=== PATIENT | male | born 1945 | race Caucasian/White ===

== ENCOUNTER 2022-09-23 15:41 | Emergency (ER) | payer MEDICARE ==
[2022-09-23 16:40] LABS: BASOPHILS % (AUTO) 0.3 %; EOSINOPHILS % (AUTO) 0.3 %; HCT - HEMATOCRIT 48.6 % (42.0-52.0); HGB - HEMOGLOBIN 16.4 g/dL (14.0-18.0); LYMPHOCYTES # (AUTO) 1.1 10^3/uL (1.5-3.5); LYMPHOCYTES % (AUTO) 15.6 %; MEAN CORPUSCULAR HGB CONC 33.7 g/dL (32.0-36.0); MEAN PLATELET VOLUME 8.8 fL (7.4-11.4); MONOCYTES # (AUTO) 0.6 10^3/uL (0.0-1.0); MONOCYTES % (AUTO) 8.8 %; NEUTROPHILS # (AUTO) 5.3 10^3/uL (1.5-6.6); NEUTROPHILS % (AUTO) 74.9 %; PLT - PLATELET COUNT 241 10^3/uL (130-450); RED BLOOD COUNT 5.46 10^6/uL (4.70-6.10); RED CELL DISTRIBUTION WIDTH 12.7 % (12.0-15.0); WHITE BLOOD COUNT 7.1 x10^3/uL (4.8-10.8)
--- NOTE | 2022-09-23 16:44 | ED Physician Documentation ---
History of Present Illness - Stated complaint Stated Complaint: IRREGULAR HB, SINUS INFECTION - Chief complaint Chief Complaint: Heent - History obtained from History obtained from: Patient - Additonal information Additional information: 77yo male had palpiatins a year ago after a flu like illness. Had holter x 6 weeks. No clear abn findings. Now 2 weeks sinus pressure, yellow drainage. No fever. This morning with fatigue, headache (better now). Since noon with Palpitations and rapid heart rate. Similar to prior episodes of palpitations. No chest pain. No trouble breathing. Review of Systems Constitutional: denies: Fever, Chills Nose: reports: Rhinorrhea / runny nose, Congestion, Sinus pressure / pain Throat: denies: Sore throat Cardiac: reports: Palpitations. denies: Chest pain / pressure Respiratory: denies: Cough PD PAST MEDICAL HISTORY - Present Medications Home Medications: Ambulatory Orders Medication Instructions Recorded Confirmed Amox/Clav 875/125 [Augmentin] 1 each PO Q12H #20 tablet 09/23/22 Finasteride [Proscar] 5 mg PO DAILY 09/23/22 09/23/22 - Allergies Allergies/Adverse Reactions: Allergies Allergy/AdvReac Type Severity Reaction Status Date / Time No Known Drug Allergies Allergy Verified 09/23/22 15:50 - Social History Does the pt smoke?: No Smoking Status: Never smoker PD ED PE NORMAL - Vitals Vital signs reviewed: Yes - General General: Alert and oriented X 3, No acute distress - HEENT HEENT: PERRL, EOMI - Neck Neck: Supple, no meningeal sign, No bony TTP - Cardiac Cardiac: RRR, No murmur - Respiratory Respiratory: No respiratory distress, Clear bilaterally - Abdomen Abdomen: Non tender - Back Back: No CVA TTP, No spinal TTP - Derm Derm: Normal color, Warm and dry - Extremities Extremities: No edema, No calf tenderness / cord - Neuro Neuro: Alert and oriented X 3, Normal speech Results - Vitals Vitals: Vital Signs - 24 hr 09/23/22 15:46 Temperature 36.5 C Heart Rate 84 Respiratory 16 Rate Blood Pressure 161/88 H O2 Saturation 98 Oxygen O2 Source Room air - EKG (time done) 1556 Rate: Rate (enter#) (74) Rhythm: NSR [place]: Normal Intervals: Normal [place] QRS: Normal Ischemia: Normal ST segments - Labs Labs: Laboratory Tests 09/23/22 09/23/22 16:30 16:30 WBC 7.1 RBC 5.46 Hgb 16.4 Hct 48.6 MCV 89.0 MCH 30.0 MCHC 33.7 RDW 12.7 Plt Count 241 MPV 8.8 Neut # (Auto) 5.3 Lymph # (Auto) 1.1 L [place] # (Auto) 0.6 Eos # (Auto) 0.0 Baso # (Auto) 0.0 Absolute Nucleated RBC 0.00 Nucleated RBC % 0.0 Sodium 139 Potassium 3.7 Chloride 102 Carbon Dioxide 27 Anion Gap 10.0 BUN 22 H Creatinine 1.2 Estimated GFR (MDRD) 59 L Glucose 106 H Calcium 9.5 Magnesium 2.0 PD Medical Decision Making - ED course ED course: 77-year-old gentleman with palpitations associated with 2 weeks of sinus infection and generally feeling ill this morning with normal EKG and otherwise unremarkable labs. Departure - Departure Disposition: Home, Self Care Clinical Impression: Palpitations Sinusitis Qualifiers: Sinusitis location: maxillary Chronicity: acute Recurrence: recurrent Qualified Code(s): J01.01 - Acute recurrent maxillary sinusitis Condition: Good Record reviewed to determine appropriate education?: Yes Instructions: ED Sinusitis Abx Tx, ED Palpitations Prescriptions: Amox/Clav 875/125 [Augmentin] 1 each PO Q12H #20 tablet Comments: We did not see any abnormal heart rhythms while in the emergency department. Reasonable to follow-up with Dr. Bergeron and talk about what if anything they saw on monitoring last year. Return if worse.
[2022-09-23 16:50] LABS: CALCIUM 9.5 mg/dL (8.5-10.3); CREATININE 1.2 mg/dL (0.6-1.2); POTASSIUM 3.7 mmol/L (3.5-5.0)
[2022-09-23 17:51] VITALS: BP 154/88
== END 2022-09-23 17:50 | disposition home or self-care (01) ==
LOC: ED 15:41
DX: R00.2 Palpitations (principal); J01.01 Acute recurrent maxillary sinusitis
CPT/HCPCS: 36415; 80048; 83735; 85025; 93005; 99283